=== PATIENT | female | born 1970 | race Caucasian/White ===

== ENCOUNTER 2017-04-15 16:23 | Emergency (ER) | payer BC, OTHER ==
[2017-04-15] MEDS: HYDROmorphone 2 MG/ML VIAL IM (18:41)
[2017-04-15 19:22] LABS: PHENY 12.8 mcg/mL (10.0-20.0)
[2017-04-18 00:09] LABS: LAMOTRIGINE LEVEL 5.1 ug/mL (2.0-20.0)
== END 2017-04-15 19:06 | disposition home or self-care (01) ==
LOC: ER 16:23
DX: S22.31XA Fracture of one rib, right side, initial encounter for closed fracture (principal); G40.909 Epilepsy, unspecified, not intractable, without status epilepticus; Z88.8 Allergy status to other drugs, medicaments and biological substances; Z88.0 Allergy status to penicillin; W01.190A Fall on same level from slipping, tripping and stumbling with subsequent striking against furniture, initial encounter; Y93.89 Activity, other specified; Y92.009 Unspecified place in unspecified non-institutional (private) residence as the place of occurrence of the external cause; Y99.8 Other external cause status
CPT/HCPCS: 36415; 71046; 71100; 80175; 80185; 96372; 99285-25; J1170

== ENCOUNTER → 2018-03-23 | Outpatient (CLI) | payer BC ==
[2017-04-15 17:36] VITALS: BP 131/77
[~2018-03-23] MED LIST: DIAZ5TAB PO; HYDR-3164 PO; LAMO25TB2 PO; PHEN50TA PO; ZONI50CA2 PO
--- NOTE | 2018-03-27 09:09 | PATHOLOGY ---
[facility] Accession Number: [id number] . 01 Material submitted: . LEFT ANKLE WOUND . 01 Clinical history: . Left ankle wound, rule out malignancy, pyoderma, lupus. . 02 Diagnosis: Skin, left ankle wound biopsy: - Ulcer with granulation tissue, mild acute and chronic inflammation, and focal hemosiderin-laden macrophages. [facility]/03/26/2018 . 02 Comment: There is no evidence of malignancy. No vasculitis is identified. (JPM/db; 03/26/2018) . 02 Electronically signed: . Mk Morrison MD, Pathologist NPI- [id number] . 01 Gross description: . Received in formalin labeled "Renea Kirkland, left ankle wound" is a skin punch biopsy measuring 0.4 cm in diameter and 0.4 cm in depth. The skin surface is molina-brown and grossly unremarkable. The margin is inked and the specimen is bisected and submitted in cassette A1. ([facility]; 03/24/2018) SYC/SYC . 02 Pathologist provided ICD-10: L97.329, L08.9 . 02 CPT . 539557 Specimen Comment: A courtesy copy of this report has been sent to Specimen Comment: [phone], . Specimen Comment: Report sent to / DR [place] Specimen Comment: A duplicate report has been generated due to demographic updates. Performed at: 01 [facility] [address], [place] [id number] MD Wyatt Aguirre MD Phone: [phone] Performed at: 02 [facility] [address] [place], [place] [id number] MD Mk Morrison MD Phone: [phone]
== END | disposition home or self-care (01) ==
LOC: PMGWOUND 10:04
PROVIDERS: ATTEND Preventive Medicine Undersea and Hyperbaric Medicine
DX: L97.322 Non-pressure chronic ulcer of left ankle with fat layer exposed (principal); F41.9 Anxiety disorder, unspecified; F32.9 Major depressive disorder, single episode, unspecified; G40.909 Epilepsy, unspecified, not intractable, without status epilepticus
CPT/HCPCS: 11100; 88305

== ENCOUNTER → 2018-03-30 | Outpatient (CLI) | payer BC ==
[2017-04-15 17:36] VITALS: BP 131/77
== END | disposition home or self-care (01) ==
LOC: PMGWOUND 08:22
PROVIDERS: ATTEND Preventive Medicine Undersea and Hyperbaric Medicine
DX: L97.322 Non-pressure chronic ulcer of left ankle with fat layer exposed (principal); F41.9 Anxiety disorder, unspecified; F32.9 Major depressive disorder, single episode, unspecified; G40.909 Epilepsy, unspecified, not intractable, without status epilepticus
CPT/HCPCS: 97597

== ENCOUNTER → 2018-04-06 | Outpatient (CLI) | payer BC ==
[2017-04-15 17:36] VITALS: BP 131/77
== END | disposition home or self-care (01) ==
LOC: PMGWOUND 07:59
PROVIDERS: ATTEND Preventive Medicine Undersea and Hyperbaric Medicine
DX: L97.322 Non-pressure chronic ulcer of left ankle with fat layer exposed (principal); F41.9 Anxiety disorder, unspecified; F32.9 Major depressive disorder, single episode, unspecified; G40.909 Epilepsy, unspecified, not intractable, without status epilepticus
CPT/HCPCS: 97597

== ENCOUNTER → 2018-04-19 | Outpatient (CLI) | payer BC ==
[2017-04-15 17:36] VITALS: BP 131/77
--- NOTE | 2018-04-19 16:31 | RAD ---
Left lower extremity venous insufficiency ultrasound exam, 04/19/2018: HISTORY: Nonhealing ankle wound Duplex evaluation of the greater saphenous and lesser saphenous veins in the left lower extremity was performed as requested. The left greater saphenous vein is patent. It demonstrates significant reflux throughout its course. At the saphenofemoral junction level. It measures 7.6 mm in diameter and demonstrates a reflux time of 3.2 seconds. A small incompetent perforating vein is noted in the inferior aspect of the left lower leg. The left lesser saphenous vein is patent and also demonstrates significant reflux. It measures 5 mm in diameter in the upper calf with a reflux time of 2.0 seconds. IMPRESSION: Significant reflux was identified in the left greater saphenous and lesser saphenous veins as described above. Electronically signed by: Fadi Goldberg MD (04/19/2018 4:27 PM) [facility]
== END | disposition home or self-care (01) ==
LOC: US 14:29
PROVIDERS: ATTEND Preventive Medicine Undersea and Hyperbaric Medicine
DX: L97.329 Non-pressure chronic ulcer of left ankle with unspecified severity (principal); I87.2 Venous insufficiency (chronic) (peripheral); R60.0 Localized edema
CPT/HCPCS: 93971

== ENCOUNTER → 2018-04-20 | Outpatient (CLI) | payer BC ==
[2017-04-15 17:36] VITALS: BP 131/77
== END | disposition home or self-care (01) ==
LOC: PMGWOUND 08:17
PROVIDERS: ATTEND Preventive Medicine Undersea and Hyperbaric Medicine
DX: L97.322 Non-pressure chronic ulcer of left ankle with fat layer exposed (principal); I87.2 Venous insufficiency (chronic) (peripheral); F41.9 Anxiety disorder, unspecified; F39 Unspecified mood [affective] disorder; G43.909 Migraine, unspecified, not intractable, without status migrainosus
CPT/HCPCS: 97597; 99214; G0463

== ENCOUNTER → 2018-05-22 | Outpatient (CLI) | payer BC ==
[2017-04-15 17:36] VITALS: BP 131/77
[~2018-05-22] MED LIST changes: +LIDOCAINE 1%/EPI 1:100,000 50 ML, SODIUM BICARBONATE VIAL 5 MEQ in IV NORMAL SALINE 100... SQ ONE
--- NOTE | 2018-05-22 13:42 | CARD ---
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 INDICATION FOR PROCEDURE The indication(s) include : Symptomatic Chronic Venous Insufficiency with Varicose Veins, lower extre mity pain, edema and venous ulcer. PROCEDURE NARRATIVE The patient was transferred to the procedure suite and the insufficient saphenous vein was mapped by ultrasound and diagrammed on the underlying skin. The depth and diameter of the vein(s) to be treate d was documented. The varicose tributary veins and suitable access sites were identified and mapped as well. The patient was then positioned supine on the procedure table. The entire limb was sterile ly prepared and the lower extremity and treatment table were sterilely draped. The RF catheter was placed on the sterile field, flushed and wiped down, prepared, and connected by a sterile cable. The patient was placed in reverse-Trendelenburg position and local anesthesia was instilled in the sk in overlying the access site. A skin incision was made overlying the identified and mapped greater s aphenous vein entry site. The vein was punctured through the incision and using ultrasound guidance and the Seldinger technique a guide wire was introduced through the needle which was then exchanged o lorraine the guide wire for a 7 F sheath. The guide wire was removed and the sheath was flushed. The RF probe was placed into the vein through the sheath and positioned at a point just distal (about 0.5 to 1 cm) to the entrance point of the superficial epigastric artery using ultrasound guidance. After the RF probe position was verified by the ultrasound, tumescent anesthesia was infiltrated, und er ultrasound guidance, precisely into the perivenuus compartment along the entire length of vein fro m the entry site to the saphenofemoral junction until a "halo" of fluid was noted around the vein. The patient was then placed in Trendelenburg position. After the RF probe position was again confirm ed with ultrasound imaging, moderate external compression was applied over the RF heating element, an d RF energy was applied. The probe was withdrawn sequentially in 6.5 cm steps with slight overlap of 7 cm segments of ablation and monitored to keep the probe temperature at 120 degrees Celsius and the generator output well below its maximum power. Treatment Segments: 9 Total Length: 52 cm. Tota l Ablation time: 3 minutes. Repeat ultrasound of the saphenous vein was performed confirming successful treatment. The catheter and sheath were withdrawn and hemostasis established with direct pressure. After assuring hemostasis , the skin incision over the saphenous vein was closed with a bandage and an external compression barbara ssing was applied from the level of the foot to the most proximal level of the thigh. Signed by : Martina Dhillon, Electronically Approved : 05/22/2018 13:42:04
== END | disposition home or self-care (01) ==
LOC: VNUS 12:29
PROVIDERS: ATTEND Internal Medicine Cardiovascular Disease
DX: I83.028 Varicose veins of left lower extremity with ulcer other part of lower leg (principal); L97.828 Non-pressure chronic ulcer of other part of left lower leg with other specified severity; I87.2 Venous insufficiency (chronic) (peripheral); Z88.0 Allergy status to penicillin; Z88.8 Allergy status to other drugs, medicaments and biological substances
CPT/HCPCS: 36475; J3490; J7030

== ENCOUNTER → 2018-05-23 | Outpatient (CLI) | payer BC ==
[2017-04-15 17:36] VITALS: BP 131/77
[~2018-05-23] MED LIST changes: -LIDOCAINE 1%/EPI 1:100,000 50 ML, SODIUM BICARBONATE VIAL 5 MEQ in IV NORMAL SALINE 100... SQ ONE
--- NOTE | 2018-05-24 08:49 | RAD ---
MR#: [id number] Date of Study: 05/23/2018 Ordering Physician: MARTINA GORDON, Referring Physician: MARTINA GORDON, Tech: Santo Wahl MBA, RDMS, RVT, RDCS, RTR APPROVED REPORT Left Lower Extremity Venous Study for DVT Patient Location: OUT-PATIENT Indications S/P LT GSV ABLATION Vein Imaging (Left) CFV (L): Compressible SFJ (L): Compressible FEM (L): Compressible POP (L): Compressible DFV (L): Compressible PTV (L): Spontaneous GSV (L): Absent Flow Peroneals (L): Spontaneous Doppler Evaluation (Left) CFV (L):Spontaneous POP (L):Spontaneous Findings Grayscale images of the left lower extremity deep veins reveal normal compressibility and flow patter ns. No evidence of DVT is noted. The left great saphenous vein demonstrates thrombus consistent with recent ablation therapy. Critical Notification Critical Value: No <Conclusion> No evidence of DVT in the left lower extremity. Incidental note of likely Franco's cyst in the left popliteal fossa measuring 3.5 x 2.7 x 1.1 cm. Signed by : Manuelito Dave, Electronically Approved : 05/24/2018 08:48:52
== END | disposition home or self-care (01) ==
LOC: US 11:40
PROVIDERS: ATTEND Internal Medicine Cardiovascular Disease
DX: I87.2 Venous insufficiency (chronic) (peripheral) (principal)
CPT/HCPCS: 93971

== ENCOUNTER → 2018-05-29 | Outpatient (CLI) | payer BC ==
[2017-04-15 17:36] VITALS: BP 131/77
[~2018-05-29] MED LIST changes: +LIDOCAINE 1%/EPI 1:100,000 50 ML, SODIUM BICARBONATE VIAL 5 MEQ in IV NORMAL SALINE 100... SQ STA
--- NOTE | 2018-05-29 14:52 | CARD ---
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 PROCEDURE NARRATIVE The patient was transferred to the procedure suite and the insufficient saphenous vein was mapped by ultrasound and diagrammed on the underlying skin. The depth and diameter of the vein(s) to be treate d was documented. The varicose tributary veins and suitable access sites were identified and mapped as well. The patient was then positioned prone on the procedure table. The entire limb was sterilel y prepared and the lower extremity and treatment table were sterilely draped. The RF catheter was p laced on the sterile field, flushed and wiped down, prepared, and connected by a sterile cable. The patient was placed in reverse-Trendelenburg position and local anesthesia was instilled in the sk in overlying the access site. A skin incision was made overlying the identified and mapped lesser sa phenous vein entry site. The vein was punctured through the incision and using ultrasound guidance a nd the Seldinger technique a guide wire was introduced through the needle which was then exchanged ov er the guide wire for a 7 F sheath. The guide wire was removed and the sheath was flushed. The RF p robe was placed into the vein through the sheath and positioned at a point just distal (about 0.5 to 1 cm) to the entrance point of the lesser saphenous vein into the popliteal junction. After the RF probe position was verified by the ultrasound, tumescent anesthesia was infiltrated, und er ultrasound guidance, precisely into the perivenuus compartment along the entire length of vein fro m the entry site to the saphenofemoral junction until a "halo" of fluid was noted around the vein. The patient was then placed in Trendelenburg position. After the RF probe position was again confirm ed with ultrasound imaging, moderate external compression was applied over the RF heating element, an d RF energy was applied. The probe was withdrawn sequentially in 6.5 cm steps with slight overlap of 7 cm segments of ablation and monitored to keep the probe temperature at 120 degrees Celsius and the generator output well below its maximum power. Treatment Segments: 6 Total Length: 26 cm. Total Ablation time: 2 minutes. Repeat ultrasound of the saphenous vein was performed confirming successful treatment. The catheter and sheath were withdrawn and hemostasis established with direct pressure. After assuring hemostasis , the skin incision over the saphenous vein was closed with a bandage and an external compression barbara ssing was applied from the level of the foot to the most proximal level of the thigh. Signed by : Martina Dhillon, Electronically Approved : 05/29/2018 14:51:51
== END | disposition home or self-care (01) ==
LOC: VNUS 13:23
PROVIDERS: ATTEND Internal Medicine Cardiovascular Disease
DX: I83.812 Varicose veins of left lower extremity with pain (principal); I87.2 Venous insufficiency (chronic) (peripheral)
CPT/HCPCS: 36475; J3490; J7030

== ENCOUNTER → 2018-10-24 | Outpatient (CLI) | payer OTHER ==
[2017-04-15 17:36] VITALS: BP 131/77
[~2018-10-24] MED LIST changes: -LIDOCAINE 1%/EPI 1:100,000 50 ML, SODIUM BICARBONATE VIAL 5 MEQ in IV NORMAL SALINE 100... SQ STA
[2018-10-24 10:19] LABS: BASO # 0.1 x10^3/uL (0.0-0.2); BASO % 2 % (0-3); EOS % 0 % (0-3); HEMATOCRIT 40.3 % (36.0-47.0); HEMOGLOBIN 13.9 g/dL (12.0-15.5); LYMPH # 1.2 x10^3/uL (1.0-4.8); LYMPH % 33 % (24-48); MEAN CORPUSCULAR HEMOGLOBIN 32 pg (25-35); MEAN CORPUSCULAR HGB CONC 35 g/dL (31-37); MEAN CORPUSCULAR VOLUME 93 fL (79-100); MONO # 0.3 x10^3/uL (0.0-1.1); MONO % 8 % (0-9); NEUT # 2.1 x10^3/uL (1.8-7.7); NEUT % 58 % (31-73); PLATELET COUNT 183 x10^3/uL (140-400); RED BLOOD COUNT 4.33 x10^6/uL (3.50-5.40); RED CELL DISTRIBUTION WIDTH 12.6 % (11.5-14.5); WHITE BLOOD COUNT 3.7 x10^3/uL (4.0-11.0)
[2018-10-24 10:34] LABS: ALBUMIN/GLOBULIN RATIO 1.2 (1.0-1.7); CALCIUM 8.9 mg/dL (8.5-10.1); CREATININE 0.8 mg/dL (0.6-1.0); GFR 77.2; POTASSIUM 4.6 mmol/L (3.5-5.1); TOTAL BILIRUBIN 0.2 mg/dL (0.2-1.0); TOTAL PROTEIN 7.4 g/dL (6.4-8.2)
[2018-10-24 12:08] LABS: PHENY 13.8 mcg/mL (10.0-20.0)
== END | disposition home or self-care (01) ==
LOC: LAB 09:54
DX: G40.119 Localization-related (focal) (partial) symptomatic epilepsy and epileptic syndromes with simple partial seizures, intractable, without status epilepticus (principal)
CPT/HCPCS: 36415; 80053; 80175; 80185; 85025

== ENCOUNTER → 2018-11-28 | Outpatient (CLI) | payer OTHER ==
[2017-04-15 17:36] VITALS: BP 131/77
[2018-11-28 11:33] LABS: BASO % 1 % (0-3); EOS % 0 % (0-3); HEMATOCRIT 39.6 % (36.0-47.0); LYMPH % 29 % (24-48); MEAN CORPUSCULAR HEMOGLOBIN 33 pg (25-35); MEAN CORPUSCULAR HGB CONC 35 g/dL (31-37); MEAN CORPUSCULAR VOLUME 93 fL (79-100); MONO # 0.3 x10^3/uL (0.0-1.1); MONO % 8 % (0-9); NEUT # 2.2 x10^3/uL (1.8-7.7); NEUT % 62 % (31-73); PLATELET COUNT 176 x10^3/uL (140-400); RED BLOOD COUNT 4.28 x10^6/uL (3.50-5.40); RED CELL DISTRIBUTION WIDTH 12.6 % (11.5-14.5); WHITE BLOOD COUNT 3.5 x10^3/uL (4.0-11.0)
[2018-11-28 12:25] LABS: ALBUMIN 4.4 g/dL (3.4-5.0); ALBUMIN/GLOBULIN RATIO 1.4 (1.0-1.7); ALK PHOS 123 U/L (46-116); ALT (SGPT) 16 U/L (14-59); ANION GAP 8 (6-14); AST (SGOT) 18 U/L (15-37); BLOOD UREA NITROGEN 18 mg/dL (7-20); BUN/CREATININE RATIO 23 (6-20); CALCIUM 8.8 mg/dL (8.5-10.1); CARBON DIOXIDE 29 mmol/L (21-32); CHLORIDE 104 mmol/L (98-107); CREATININE 0.8 mg/dL (0.6-1.0); GFR 77.2; GLUCOSE 96 mg/dL (70-99); PHENY 14.7 mcg/mL (10.0-20.0); SODIUM 141 mmol/L (136-145); TOTAL BILIRUBIN 0.2 mg/dL (0.2-1.0); TOTAL PROTEIN 7.5 g/dL (6.4-8.2)
== END | disposition home or self-care (01) ==
LOC: LAB 11:11
PROVIDERS: ATTEND Psychiatry & Neurology Neurology
DX: G40.119 Localization-related (focal) (partial) symptomatic epilepsy and epileptic syndromes with simple partial seizures, intractable, without status epilepticus (principal)
CPT/HCPCS: 36415; 80053; 80175; 80185; 85025